=== PATIENT | female | born 1935 | race American Indian/Alaskan Native ===

== ENCOUNTER 2018-08-06 18:04 | Emergency (ER) | payer MEDICARE ==
--- NOTE | 2018-08-06 18:24 | Emergency Department Report ---
Blank Doc - Documentation Documentation: c/o recurrent pain to left forearm pain atrauamtic
--- NOTE | 2018-08-06 20:25 | XRay Report ---
PROCEDURE: XR FOREARM LT TECHNIQUE: Frontal and lateral views left forearm HISTORY: forearm pain COMPARISONS: None FINDINGS: There is no evidence of fracture or subluxation. There appears to be soft tissue swelling of the dorsal aspect of the forearm. There is evidence of degenerative change of the joints of the wrist. IMPRESSION: 1. No evidence of fracture or subluxation. 2. Appearance of degenerative change of the joints of the wrist. 3. Appearance of soft tissue swelling on the dorsal aspect of the forearm. This document is electronically signed by Cindy Summers MD., August 06 2018 08:23:26 PM ET
--- NOTE | 2018-08-06 21:21 | Emergency Department Report ---
ED Upper Extremity Inj HPI - General Chief Complaint: Extremity Injury, Upper Stated Complaint: L ARM PAIN/L HAND SWOLLEN Time Seen by Provider: 08/06/18 18:20 Source: patient Mode of arrival: Ambulatory Limitations: No Limitations - History of Present Illness Initial Comments: 83-year-old female with pain to the left thumb and forearm. Patient states she believes she hurt when I compared her pants approximately one week ago, reports mild swelling to the left thumb. He reports onset of left forearm and elbow pain 2 days ago. States feels like a shooting pain. Denies radiation up into the shoulder or chest. Patient denies chest pain, vomiting, diaphoresis, shortness of breath. Patient denies aggravating factors. Patient states she used Voltaren cream and took Naprosyn which seemed to help some with the pain. PCP: Dr Juanita PETIT Complaint: Injury to:: left, elbow, forearm -: days(s) (2) Place: home Associated Symptoms: denies other symptoms Treatments Prior to Arrival: NSAIDS - Related Data Home Medications Medication Instructions Recorded Confirmed Last Taken Metoprolol [Lopressor TAB] 25 mg PO DAILY 03/01/14 03/01/14 Unknown Pantoprazole [Protonix] 40 mg PO DAILY 03/01/14 03/01/14 Unknown Promethazine [Phenergan TAB] 25 mg PO PRN 03/01/14 03/01/14 Unknown Tramadol HCl [traMADol] 50 mg PO PRN 03/01/14 03/01/14 Unknown diazePAM TAB [Valium] 5 mg PO HS 03/01/14 03/01/14 Unknown Previous Rx's Medication Instructions Recorded Last Taken Type Butalb/Acetamin/Caff 50-325-40 1 tab PO Q6HR #14 tablet 02/28/14 Unknown Rx [Fioricet] Ondansetron [Zofran Odt] 4 mg PO Q8HR #14 tab.rapdis 02/28/14 Unknown Rx Ibuprofen [Motrin] 600 mg PO Q8H PRN #30 tablet 09/01/15 Unknown Rx Sulfamethoxazole/Trimethoprim 1 each PO BID #20 tablet 09/01/15 Unknown Rx [Bactrim DS TAB] Lidocaine [Lidoderm] 1 each TP QDAY #5 adh..patch 08/06/18 Unknown Rx Allergies Allergy/AdvReac Type Severity Reaction Status Date / Time codeine Allergy Unknown Verified 08/06/18 23:18 tramadol HCl [From Ultram] Allergy Unknown Verified 08/06/18 23:18 ED Review of Systems ROS: Stated complaint: L ARM PAIN/L HAND SWOLLEN Other details as noted in HPI Comment: All other systems reviewed and negative Respiratory: denies: shortness of breath Cardiovascular: denies: chest pain Gastrointestinal: denies: vomiting Musculoskeletal: as per HPI Neurological: denies: numbness, paresthesias ED Past Medical Hx - Past Medical History Previous Medical History?: Yes Hx Hypertension: Yes Hx GERD: Yes Additional medical history: Diverticulitis - Surgical History Past Surgical History?: Yes Hx Cholecystectomy: Yes Additional Surgical History: , hernia repair - Social History Smoking Status: Former Smoker Substance Use Type: None - Medications Home Medications: Home Medications Medication Instructions Recorded Confirmed Last Taken Type Butalb/Acetamin/Caff 50-325-40 1 tab PO Q6HR #14 tablet 02/28/14 03/01/14 Unknown Rx [Fioricet] Ondansetron [Zofran Odt] 4 mg PO Q8HR #14 tab.rapdis 02/28/14 03/01/14 Unknown Rx Metoprolol [Lopressor TAB] 25 mg PO DAILY 03/01/14 03/01/14 Unknown History Pantoprazole [Protonix] 40 mg PO DAILY 03/01/14 03/01/14 Unknown History Promethazine [Phenergan TAB] 25 mg PO PRN 03/01/14 03/01/14 Unknown History Tramadol HCl [traMADol] 50 mg PO PRN 03/01/14 03/01/14 Unknown History diazePAM TAB [Valium] 5 mg PO HS 03/01/14 03/01/14 Unknown History Ibuprofen [Motrin] 600 mg PO Q8H PRN #30 tablet 09/01/15 Unknown Rx Sulfamethoxazole/Trimethoprim 1 each PO BID #20 tablet 09/01/15 Unknown Rx [Bactrim DS TAB] Lidocaine [Lidoderm] 1 each TP QDAY #5 adh..patch 08/06/18 Unknown Rx ED Physical Exam - General Limitations: No Limitations General appearance: alert, in no apparent distress - Head Head exam: Present: atraumatic, normocephalic - Eye Eye exam: Present: normal appearance - ENT ENT exam: Present: mucous membranes moist - Neck Neck exam: Present: normal inspection - Respiratory Respiratory exam: Present: normal lung sounds bilaterally. Absent: respiratory distress - Cardiovascular Cardiovascular Exam: Present: regular rate, normal rhythm - GI/Abdominal GI/Abdominal exam: Present: soft. Absent: distended, tenderness - Extremities Exam Extremities exam: Present: normal inspection, full ROM, tenderness (mild tenderness with flexion/ extension of left thumb; forearm/ elbow/ upper arm nontender, not swollen) - Neurological Exam Neurological exam: Present: alert, oriented X3, CN II-XII intact. Absent: motor sensory deficit - Psychiatric Psychiatric exam: Present: normal affect, normal mood - Skin Skin exam: Present: warm, dry, intact, normal color. Absent: rash ED Course Vital Signs 08/06/18 08/06/18 08/06/18 18:08 18:09 20:15 Temperature 97.7 F 98.2 F Pulse Rate 65 62 Respiratory 16 17 Rate Blood Pressure 178/78 Blood Pressure 181/76 [Right] O2 Sat by Pulse 98 98 Oximetry 08/06/18 22:59 Temperature Pulse Rate 62 Respiratory 17 Rate Blood Pressure Blood Pressure 182/72 [Right] O2 Sat by Pulse 98 Oximetry ED Medical Decision Making - Lab Data Result diagrams: 08/06/18 21:10 08/06/18 21:10 - EKG Data -: EKG Interpreted by Me EKG shows normal: sinus rhythm, axis, intervals, QRS complexes, ST-T waves Rate: normal - EKG Data Interpretation: no acute changes - Radiology Data Radiology results: report reviewed - Medical Decision Making 83 yo female with left forearm pain 2 days. Reports a shooting pain that kept her up last night. Denies cardiac symptoms as chest pain, shortness of breath, diaphoresis, vomiting. This is not felt to be cardiac in nature. Patient states she had this pain a few years ago, believed to be arthritis. Patient was given Toradol 15 mg, then requested a "steroid shot" which helped her bursitis in the past. Patient also given lidocaine patch and prescription as well. Outpatient follow-up advised. Return precautions given. - Differential Diagnosis arthritis, arthralgia, neuropathy, ACS Critical care attestation.: If time is entered above; I have spent that time in minutes in the direct care of this critically ill patient, excluding procedure time. ED Disposition Clinical Impression: Pain in left forearm Disposition: DC-01 TO HOME OR SELFCARE Is pt being admited?: No Condition: Stable Instructions: Arthralgia (ED) Prescriptions: Lidocaine [Lidoderm] 1 each TP QDAY #5 adh..patch Referrals: GARY ORTIZ MD [Staff Physician] - 3-5 Days Time of Disposition: 23:54
[2018-08-06 21:31] LABS: Basophils % (Auto) 0.9 % (0.0-1.8); Eosinophils # (Auto) 0.1 K/mm3 (0.0-0.4); Eosinophils % (Auto) 2.6 % (0.0-4.3); Hematocrit 41.2 % (30.3-42.9); Hemoglobin 13.7 gm/dl (10.1-14.3); Lymphocytes # (Auto) 2.6 K/mm3 (1.2-5.4); Mean Corpuscular HGB Conc 33 % (30-34); Mean Corpuscular Volume 89 fl (79-97); Monocytes # (Auto) 0.4 K/mm3 (0.0-0.8); Monocytes % (Auto) 8.3 % (0.0-7.3); Platelet Count 230 K/mm3 (140-440); Red Blood Count 4.62 M/mm3 (3.65-5.03); Red Cell Distribution Width 14.6 % (13.2-15.2)
[2018-08-06 21:46] LABS: BUN/Creatinine Ratio 17; Blood Urea Nitrogen 12 mg/dL (7-17); Calcium 8.8 mg/dL (8.4-10.2); Hemolysis Index 13
[2018-08-06] MEDS ORDERED: TORADOL IV ONE (22:41)
[2018-08-06 23:00] VITALS: BP 182/72
[2018-08-06] MEDS ORDERED: SOLU-Medrol IM ONE (23:53)
[2018-08-07] MEDS ORDERED: LIDODERM 5% TD ONE (23:17)
== END 2018-08-07 00:18 | disposition home or self-care (01) ==
LOC: ED 18:04
DX: M79.632 Pain in left forearm (principal); M79.645 Pain in left finger(s); M79.89 Other specified soft tissue disorders; M25.522 Pain in left elbow; K21.9 Gastro-esophageal reflux disease without esophagitis; I10 Essential (primary) hypertension; Z90.49 Acquired absence of other specified parts of digestive tract; Z98.890 Other specified postprocedural states; Z87.891 Personal history of nicotine dependence; Z88.6 Allergy status to analgesic agent; Z88.5 Allergy status to narcotic agent; Z79.899 Other long term (current) drug therapy
CPT/HCPCS: 36415; 73090; 80048; 84484; 85025; 93005; 93010; 96372; 96374; 99284; J1885; J2930

== ENCOUNTER 2020-08-02 14:43 | Emergency (ER) | payer MEDICARE ==
[2020-08-02] MEDS ORDERED: ONDANSETRON 4 MG ODT TAB PO ONE (15:02)
[2020-08-02] MEDS ORDERED: HYDROcodone/ACETAMINOPHEN 5-325 MG TAB PO ONE (15:02)
[2020-08-02 15:26] LABS: Bacteria,Urine 3+ /HPF (Negative); Bilirubin,Urine NEG (Negative); Blood,Urine SM (Negative); Color,Urine Straw (Yellow); Hyaline Casts,Urine 1 /LPF; Protein,Urine <15 mg/dL mg/dL (Negative); Urobilinogen,Urine < 2.0 mg/dL (<2.0)
--- NOTE | 2020-08-02 15:54 | Cat Scan Report ---
CT LUMBAR SPINE: 08/02/2020 INDICATION / CLINICAL INFORMATION: low back pain radiates down left leg. COMPARISON: None available. FINDINGS: CT images of the lumbar spine were obtained. Images are evaluated in the axial, coronal, and sagittal planes. There is no evidence of acute abnormality. Left convex scoliosis is centered in the upper lumbar spi ne. Vertebral body alignment is otherwise unremarkable. There is no evidence of compression deformity or acute osseous injury. LEVEL BY LEVEL ANALYSIS: L5-S1: Mild diffuse disc bulging and facet degenerative changes. No evidence of stenosis or laterali zation. L4-5: Mild diffuse disc bulging and minimal facet degenerative changes. No evidence of stenosis or la teralization. L3-4: Disc space narrowing and moderate diffuse disc bulging. Moderate central canal narrowing, with bilateral foraminal narrowing present, more pronounced on the left than on the right. There may be so me impingement upon the exiting left L3 nerve root as a result. L2-3: Minimal symmetric diffuse disc bulging. L1-2: Disc space narrowing and mild diffuse disc bulging. PARASPINAL STRUCTURES: Unremarkable. IMPRESSION: No acute abnormality. Multilevel degenerative changes as described above, with left-sided foraminal narrowing at L3-4. All CT scans at this location are performed using dose reduction to ALARA by means of automated expos ure control. Signer Name: Riaz Lopez MD Signed: 08/02/2020 3:49 PM Workstation Name: [id number]
--- NOTE | 2020-08-02 15:54 | Emergency Department Report ---
ED General Adult HPI - General Chief complaint: Extremity Problem,Nontraumatic Stated complaint: SEVERE HIP PAINS Time Seen by Provider: 08/02/20 14:52 Source: patient Mode of arrival: Ambulatory Limitations: No Limitations - History of Present Illness Initial comments: Patient is a 85-year-old female presents emergency room complaints of left lower back pain, left hip pain, pain that radiates down the left lower leg that began 3 days ago. She denies any fall or injury. She states that she has had this once in the past but is not sure she had at that time. She states that she had some mild nausea that began last night. She states that she believes the pain was making her nauseous. She denies any fever, vomiting, diarrhea, abdominal pain, leg swelling, numbness, weakness, calf pain. She has an intolerance to codeine and tramadol. - Related Data Home Medications Medication Instructions Recorded Confirmed Last Taken Metoprolol [Lopressor TAB] 25 mg PO DAILY 03/01/14 03/01/14 Unknown Pantoprazole [Protonix] 40 mg PO DAILY 03/01/14 03/01/14 Unknown Promethazine [Phenergan] 25 mg PO PRN 03/01/14 03/01/14 Unknown Tramadol HCl [traMADol] 50 mg PO PRN 03/01/14 03/01/14 Unknown diazePAM TAB [Valium] 5 mg PO HS 03/01/14 03/01/14 Unknown Previous Rx's Medication Instructions Recorded Last Taken Type Butalb/Acetamin/Caff 50-325-40 1 tab PO Q6HR #14 tablet 02/28/14 Unknown Rx [Fioricet] Ondansetron [Zofran Odt] 4 mg PO Q8HR #14 tab.rapdis 02/28/14 Unknown Rx Ibuprofen [Motrin] 600 mg PO Q8H PRN #30 tablet 09/01/15 Unknown Rx Sulfamethoxazole/Trimethoprim 1 each PO BID #20 tablet 09/01/15 Unknown Rx [Bactrim DS TAB] Lidocaine [Lidoderm] 1 each TP QDAY #5 adh..patch 08/06/18 Unknown Rx Acetaminophen [Tylenol] 650 mg PO Q8HR PRN #20 capsule 08/02/20 Unknown Rx Menthol/Camphor [Jadwin [place] 1 applicatio TP BID #18 oint...g. 08/02/20 Unknown Rx Ointment] predniSONE [Deltasone] 20 mg PO DAILY 5 Days #5 tablet 08/02/20 Unknown Rx Allergies Allergy/AdvReac Type Severity Reaction Status Date / Time codeine Allergy Unknown Verified 08/06/18 23:18 tramadol HCl [From Ultram] Allergy Unknown Verified 08/06/18 23:18 ED Review of Systems ROS: Stated complaint: SEVERE HIP PAINS Other details as noted in HPI Comment: All other systems reviewed and negative ED Past Medical Hx - Past Medical History Previous Medical History?: Yes Hx Hypertension: Yes Hx GERD: Yes Additional medical history: Diverticulitis - Surgical History Hx Cholecystectomy: Yes Additional Surgical History: , hernia repair - Social History Smoking Status: Former Smoker Substance Use Type: None - Medications Home Medications: Home Medications Medication Instructions Recorded Confirmed Last Taken Type Butalb/Acetamin/Caff 50-325-40 1 tab PO Q6HR #14 tablet 02/28/14 03/01/14 Unknown Rx [Fioricet] Ondansetron [Zofran Odt] 4 mg PO Q8HR #14 tab.rapdis 02/28/14 03/01/14 Unknown Rx Metoprolol [Lopressor TAB] 25 mg PO DAILY 03/01/14 03/01/14 Unknown History Pantoprazole [Protonix] 40 mg PO DAILY 03/01/14 03/01/14 Unknown History Promethazine [Phenergan] 25 mg PO PRN 03/01/14 03/01/14 Unknown History Tramadol HCl [traMADol] 50 mg PO PRN 03/01/14 03/01/14 Unknown History diazePAM TAB [Valium] 5 mg PO HS 03/01/14 03/01/14 Unknown History Ibuprofen [Motrin] 600 mg PO Q8H PRN #30 tablet 09/01/15 Unknown Rx Sulfamethoxazole/Trimethoprim 1 each PO BID #20 tablet 09/01/15 Unknown Rx [Bactrim DS TAB] Lidocaine [Lidoderm] 1 each TP QDAY #5 adh..patch 08/06/18 Unknown Rx Acetaminophen [Tylenol] 650 mg PO Q8HR PRN #20 capsule 08/02/20 Unknown Rx Menthol/Camphor [Jadwin Salinas 1 applicatio TP BID #18 oint...g. 08/02/20 Unknown Rx Ointment] predniSONE [Deltasone] 20 mg PO DAILY 5 Days #5 tablet 08/02/20 Unknown Rx ED Physical Exam - General Limitations: No Limitations General appearance: alert, in no apparent distress - Head Head exam: Present: atraumatic, normocephalic - Eye Eye exam: Present: normal appearance, PERRL, EOMI. Absent: periorbital swelling, periorbital tenderness - ENT ENT exam: Present: mucous membranes moist - Neck Neck exam: Present: normal inspection, full ROM. Absent: tenderness - Respiratory Respiratory exam: Present: normal lung sounds bilaterally. Absent: respiratory distress, wheezes, rales, rhonchi, stridor, chest wall tenderness, accessory muscle use, decreased breath sounds, prolonged expiratory - Cardiovascular Cardiovascular Exam: Present: regular rate, normal rhythm, normal heart sounds. Absent: systolic murmur, diastolic murmur, rubs, gallop - GI/Abdominal GI/Abdominal exam: Present: soft, normal bowel sounds. Absent: distended, tenderness, guarding, rebound, rigid - Extremities Exam Extremities exam: Present: other (mild ttp to the left lateral hip at the iliac crest, FROM of the LLE, no deformity, no edema, no calf ttp, neurovascularly intact, no skin changes, no erythema or increased warmth) - Back Exam Back exam: Present: normal inspection, full ROM, paraspinal tenderness (mild left lumbar paraspinal muscular ttp, no midline C-spine, T-spine or L-spine ttp, no step offs, no deformities ). Absent: vertebral tenderness - Neurological Exam Neurological exam: Present: alert, oriented X3, CN II-XII intact, normal gait. Absent: motor sensory deficit - Psychiatric Psychiatric exam: Present: normal affect, normal mood - Skin Skin exam: Present: warm, dry, intact ED Course Vital Signs 08/02/20 08/02/20 14:52 17:16 Temperature 97.8 F Pulse Rate 68 69 Respiratory 18 18 Rate Blood Pressure 186/79 Blood Pressure 189/87 [Right] O2 Sat by Pulse 97 96 Oximetry ED Medical Decision Making - Lab Data Result diagrams: 08/02/20 15:22 08/02/20 15:22 Lab Results 08/02/20 08/02/20 08/02/20 Range/Units 15:22 15:22 Unknown WBC 5.4 (4.5-11.0) K/mm3 RBC 4.81 (3.65-5.03) M/mm3 Hgb 14.5 H (10.1-14.3) gm/dl Hct 43.5 H (30.3-42.9) % MCV 90 (79-97) fl MCH 30 (28-32) pg MCHC 33 (30-34) % RDW 14.5 (13.2-15.2) % Plt Count 244 (140-440) K/mm3 Lymph % (Auto) 35.4 H (13.4-35.0) % [place] % (Auto) 8.2 H (0.0-7.3) % Eos % (Auto) 2.6 (0.0-4.3) % Baso % (Auto) 0.7 (0.0-1.8) % Lymph # (Auto) 1.9 (1.2-5.4) K/mm3 [place] # (Auto) 0.4 (0.0-0.8) K/mm3 Eos # (Auto) 0.1 (0.0-0.4) K/mm3 Baso # (Auto) 0.0 (0.0-0.1) K/mm3 Seg Neutrophils % 53.1 (40.0-70.0) % Seg Neutrophils # 2.9 (1.8-7.7) K/mm3 Sodium 136 L (137-145) mmol/L Potassium 4.4 (3.6-5.0) mmol/L Chloride 100.8 (98-107) mmol/L Carbon Dioxide 28 (22-30) mmol/L Anion Gap 12 mmol/L BUN 6 L (7-17) mg/dL Creatinine 0.7 (0.6-1.2) mg/dL Estimated GFR > 60 ml/min BUN/Creatinine Ratio 9 % Glucose 97 (65-100) mg/dL Calcium 9.1 (8.4-10.2) mg/dL Total Bilirubin 0.30 (0.1-1.2) mg/dL AST 15 (5-40) units/L ALT 17 (7-56) units/L Alkaline Phosphatase 93 (35-129) units/L Total Protein 6.6 (6.3-8.2) g/dL Albumin 4.2 (3.9-5) g/dL Albumin/Globulin Ratio 1.8 % Lipase 37 (13-60) units/L Urine Color Straw (Yellow) Urine Turbidity Clear (Clear) Urine pH 7.0 (5.0-7.0) Ur Specific [place] 1.004 (1.003-1.030) Urine Protein <15 mg/dl (Negative) mg/dL Urine Glucose (UA) Neg (Negative) mg/dL Urine Ketones Neg (Negative) mg/dL Urine Blood Sm (Negative) Urine Nitrite Neg (Negative) Urine Bilirubin Neg (Negative) Urine Urobilinogen < 2.0 (<2.0) mg/dL Ur Leukocyte Esterase Neg (Negative) Urine WBC (Auto) 2.0 (0.0-6.0) /HPF Urine RBC (Auto) 3.0 (0.0-6.0) /HPF U Epithel Cells (Auto) 1.0 (0-13.0) /HPF Urine Bacteria (Auto) 3+ (Negative) /HPF Hyaline Casts 1 /LPF Vital Signs 08/02/20 08/02/20 14:52 17:16 Temperature 97.8 F Pulse Rate 68 69 Respiratory 18 18 Rate Blood Pressure 186/79 Blood Pressure 189/87 [Right] O2 Sat by Pulse 97 96 Oximetry - Radiology Data Radiology results: report reviewed Ordering Physician: BILLIE THOMAS Date of Service: 08/02/20 Procedure(s): CT lumbar spine wo con Accession Number(s): [id number] cc: BILLIE THOMAS CT LUMBAR SPINE: 08/02/2020 INDICATION / CLINICAL INFORMATION: low back pain radiates down left leg. COMPARISON: None available. FINDINGS: CT images of the lumbar spine were obtained. Images are evaluated in the axial, coronal, and sagittal planes. There is no evidence of acute abnormality. Left convex scoliosis is centered in the upper lumbar spine. Vertebral body alignment is otherwise unremarkable. There is no evidence of compression deformity or acute osseous injury. LEVEL BY LEVEL ANALYSIS: L5-S1: Mild diffuse disc bulging and facet degenerative changes. No evidence of stenosis or lateralization. L4-5: Mild diffuse disc bulging and minimal facet degenerative changes. No evidence of stenosis or lateralization. L3-4: Disc space narrowing and moderate diffuse disc bulging. Moderate central canal narrowing, with bilateral foraminal narrowing present, more pronounced on the left than on the right. There may be some impingement upon the exiting left L3 nerve root as a result. L2-3: Minimal symmetric diffuse disc bulging. L1-2: Disc space narrowing and mild diffuse disc bulging. PARASPINAL STRUCTURES: Unremarkable. IMPRESSION: No acute abnormality. Multilevel degenerative changes as described above, with left-sided foraminal narrowing at L3-4. All CT scans at this location are performed using dose reduction to ALARA by means of automated exposure control. Signer Name: Riaz Lopez MD Signed: 08/02/2020 3:49 PM Workstation Name: [id number] Transcribed By: AO Dictated By: Riaz Lopez MD Electronically Authenticated By: Riaz Lopez MD Signed Date/Time: 08/02/20 1549 DD/ 154 TD/TT: Print Ordering Physician: BILLIE THOMAS Date of Service: 08/02/20 Procedure(s): XR hip 2-3V LT Accession Number(s): [id number] cc: BILLIE THOMAS Fluoro Time In Minutes: XR hip 2-3V LT INDICATION / CLINICAL INFORMATION: left hip pain. COMPARISON: None available. FINDINGS: No acute fracture. Normal alignment. Degenerative changes commensurate for age.. No destructive osseous lesion or suspicious periosteal reaction. Impression: 1.No significant osseous abnormality. Signer Name: Isaias Jon MD Signed: 08/02/2020 3:58 PM Workstation Name: [id number] Transcribed By: CS Dictated By: Isaias Jon MD Electronically Authenticated By: Isaias Jon MD Signed Date/Time: 08/02/20 1558 DD/ 1557 TD/TT: Print Cancel - Medical Decision Making Patient is a 85-year-old female presents emergency room complaints of left lower back pain, left hip pain, pain that radiates down the left lower leg that began 3 days ago. She denies any fall or injury. She states that she has had this once in the past but is not sure she had at that time. She states that she had some mild nausea that began last night. She states that she believes the pain was making her nauseous. She denies any fever, vomiting, diarrhea, abdominal pain, leg swelling, numbness, weakness, calf pain. She has an intolerance to co deine and tramadol. Vitals with elevated blood pressure, she has a history of hypertension, she states that she has not yet taken her blood pressure medication, she states that she does have her medication at home. On exam: mild ttp to the left lateral hip at the iliac crest, FROM of the LLE, no deformity, no edema, no calf ttp, neurovascularly intact, no skin changes, no erythema or increased warmth, mild left lumbar paraspinal muscular ttp, no midline C-spine, T-spine or L-spine ttp, no step offs, no deformities, no focal neuro deficits. Labs are normal. UA is no evidence of UTI. X-ray left hip: 1.No significant osseous abnormality. CT lumbar spine: No acute abnormality. Multilevel degenerative changes as described above, with left-sided foraminal narrowing at L3-4. Times are most likely related to lumbar radiculopathy. Patient has no clinical signs of conus medullaris or cauda equina. No signs of epidural abscess, back is normal in appearance, she has no fever, no tachycardia, she is not a IV drug user. Patient given pain medication while in the emergency department as she did not drive and symptoms improved. Patient given prescription for Tylenol, low-dose prednisone, Jadwin balm ointment. Advised patient and patient's daughter please use medication as prescribed. Please follow-up with primary care doctor. Please follow-up with orthopedic/spine doctor. Return to emergency room immediately for any new or worsening symptoms. Critical care attestation.: If time is entered above; I have spent that time in minutes in the direct care of this critically ill patient, excluding procedure time. ED Disposition Clinical Impression: Left hip pain Low back pain Qualifiers: Chronicity: acute Back pain laterality: left Sciatica presence: with sciatica Sciatica laterality: sciatica of left side Qualified Code(s): M54.42 - Lumbago with sciatica, left side Disposition: TO HOME OR SELFCARE Is pt being admited?: No Does the pt Need Aspirin: No Condition: Stable Instructions: Radicular Pain, Sciatica Additional Instructions: Please use medication as prescribed. Please follow-up with primary care doctor. Please follow-up with orthopedic/spine doctor. Return to emergency room imme diately for any new or worsening symptoms. Prescriptions: predniSONE [Deltasone] 20 mg PO DAILY 5 Days #5 tablet Menthol/Camphor [Jadwin Salinas Ointment] 1 applicatio TP BID #18 oint...g. Acetaminophen [Tylenol] 650 mg PO Q8HR PRN #20 capsule PRN Reason: pain Referrals: your, primary care doctor [Other] - 2-3 Days [facility] [Provider Group] - 2-3 Days SHEILA MARTIN II, MD [Staff Physician] - 2-3 Days Time of Disposition: 16:51 Print Language: DANISH
--- NOTE | 2020-08-02 16:02 | XRay Report ---
XR hip 2-3V LT INDICATION / CLINICAL INFORMATION: left hip pain. COMPARISON: None available. FINDINGS: No acute fracture. Normal alignment. Degenerative changes commensurate for age.. No destructive oss eous lesion or suspicious periosteal reaction. Impression: 1.No significant osseous abnormality. Signer Name: Isaias Jon MD Signed: 08/02/2020 3:58 PM Workstation Name: [id number]
[2020-08-02 16:18] LABS: Basophils % (Auto) 0.7 % (0.0-1.8); Eosinophils # (Auto) 0.1 K/mm3 (0.0-0.4); Eosinophils % (Auto) 2.6 % (0.0-4.3); Hematocrit 43.5 % (30.3-42.9); Hemoglobin 14.5 gm/dl (10.1-14.3); Lymphocytes # (Auto) 1.9 K/mm3 (1.2-5.4); Lymphocytes % (Auto) 35.4 % (13.4-35.0); Mean Corpuscular HGB Conc 33 % (30-34); Mean Corpuscular Volume 90 fl (79-97); Monocytes # (Auto) 0.4 K/mm3 (0.0-0.8); Monocytes % (Auto) 8.2 % (0.0-7.3); Platelet Count 244 K/mm3 (140-440); Red Blood Count 4.81 M/mm3 (3.65-5.03); Red Cell Distribution Width 14.5 % (13.2-15.2)
[2020-08-02 16:30] LABS: Alanine Aminotransferase 17 units/L (7-56); Albumin 4.2 g/dL (3.9-5); Blood Urea Nitrogen 6 mg/dL (7-17); Calcium 9.1 mg/dL (8.4-10.2); Hemolysis Index 7
[2020-08-02 16:31] LABS: BUN/Creatinine Ratio 9
[2020-08-02 17:27] VITALS: BP 189/87
== END 2020-08-02 17:27 | disposition home or self-care (01) ==
LOC: ED 14:43
DX: M54.5 Low back pain (principal); M25.552 Pain in left hip; R11.0 Nausea; I10 Essential (primary) hypertension; K21.9 Gastro-esophageal reflux disease without esophagitis; Z90.49 Acquired absence of other specified parts of digestive tract; Z98.890 Other specified postprocedural states; Z87.891 Personal history of nicotine dependence; Z79.899 Other long term (current) drug therapy; Z88.8 Allergy status to other drugs, medicaments and biological substances
CPT/HCPCS: 36415; 72131; 80053; 81001; 83690; 85025; Q0162